=== PATIENT | female | born 1945 | race Caucasian/White ===

== ENCOUNTER 2016-06-03 10:05 | Day surgery (SDC) | payer MEDICARE ==
[~2016-06-03 10:05] MED LIST: Buffered Lidocaine 1% SYR 3ML* 3 ML/SYR SYRINGE INTRADERM ONE; NS 0.9% 1000 ML* 1,000 ML IV SCH
[2016-06-03] MEDS ORDERED: ceFAZolin 2 GM PREMIX (*) 2 GM/50 ML BAG IVPB ONE (10:13)
[2016-06-03] MEDS ORDERED: Midazolam* 1 MG/ML 5 ML VIAL (5 MG) ONE (12:38)
[2016-06-03] MEDS ORDERED: Lidocaine 1% MPF wEPI 200,000* 30 ML SDV ONE (12:54)
[2016-06-03] MEDS ORDERED: Methylene Blue 1%* 10 ML VIAL ONE (12:54)
[2016-06-03] MEDS ORDERED: Bupivacaine 0.25% EPI 200,000* 30 ML SDV ONE (12:55)
[2016-06-03] MEDS ORDERED: Lidocain 1% EPI 1:100,000 * 30 ML MDV ONE (13:05)
[2016-06-03] MEDS ORDERED: KETAMINE HCL* 50 MG/ML 10 ML VIAL ONE (13:21)
[2016-06-03] MEDS ORDERED: fentaNYL* 50 MCG/ML 2 ML VIAL (100 MCG VIAL) ONE (13:21)
[2016-06-03] MEDS ORDERED: DiMENhydriNATE IV* 50 MG/ML VIAL IV PUSH PRN (13:53)
[2016-06-03] MEDS ORDERED: Ondansetron INJ* 2 MG/ML VIAL IV PRN (13:53)
[2016-06-03] MEDS ORDERED: HYDROcodone/ACETAMIN 5-325 MG* 1 TAB PO PRN (13:53)
[2016-06-03] MEDS ORDERED: Acetaminophen TAB* 325 MG PO PRN (13:53)
[2016-06-03] MEDS ORDERED: PROCHLORPERAZINE INJ 5 MG/ML 2 ML VIAL IV PRN (13:53)
[2016-06-03] MEDS ORDERED: Lidocaine 2% PF * 5 ML VIAL ONE (14:17)
[2016-06-03] MEDS ORDERED: Famotidine IV* 10 MG/ML 2 ML (20 mg) ONE (14:17)
[2016-06-03] MEDS ORDERED: Propofol* 10 MG/ML 20 ML BTL IV PUSH ONE (14:17)
[2016-06-03 15:39] VITALS: BP 130/53
== END 2016-06-03 16:04 | disposition home or self-care (01) ==
LOC: OR 10:05
PROVIDERS: ATTEND Plastic Surgery
DX: C44.212 Basal cell carcinoma of skin of right ear and external auricular canal (principal)
CPT/HCPCS: 88305; 88331; 88332; J0690; J2001; J2250; J2704; J3010

== ENCOUNTER 2017-08-21 10:40 | Emergency (ER) | payer MEDICARE ==
--- NOTE | 2017-08-21 11:19 | UC ---
Lower Extremity/Ankle HPI - HPI Summary HPI Summary: 71 y/o female presents to the urgent care c/o Rt ankle pain s/p twisting her ankle and falling while playing w/ her dog this morning around 0915 AM. Pt was able to bear weight b/ w/ limping after injury. Pain is 3/10 at rest and 6/10 w / movement. She has swelling w/ bruising in the lateral malleolus. She applied ice and took 2 tabs of Advil to alleviate symptoms. Pt denies numbness or tingling sensation over her RT foot or ankle, SOB, calf pain, chest pain, abdominal pain, N/V/D - History of Current Complaint Stated Complaint: ANKLE INJURY Time Seen by Provider: 08/21/17 11:15 Hx Obtained From: Patient ?: No - Menopausal Onset/Duration: Sudden Onset, Lasting Hours - 2hrs Severity Initially: Moderate Severity Currently: Moderate Pain Intensity: 6 - w/ movement Pain Scale Used: 0-10 Numeric Aggravating Factor(s): Standing, Ambulation Alleviating Factor(s): Rest, Ice, OTC Meds Able to Bear Weight: Yes - Risk Factors Gout Risk Factors: Negative DVT Risk Factors: Negative Septic Arthritis Risk Factor: Negative - Allergies/Home Medications Allergies/Adverse Reactions: Allergies Allergy/AdvReac Type Severity Reaction Status Date / Time codeine Allergy Intermediate Nausea Verified 08/21/17 11:31 PMH/Surg Hx/FS Hx/Imm Hx Previously Healthy: Yes Other Endocrine History: Osteopenia Other GI/ History: IBS Other Cancer History: Basal cell carcinoma - Surgical History Surgical History: Yes Surgery Procedure, Year, and Place: TONSILLECTOMY 1961 [facility]. COSMETIC FACIAL SURGERY/LASER 1999 IN OFFICE- DR KHAN. UPPER WISDOM TEETH REMOVED- 2012 IN OFFICE- DR KHAN - Family History Known Family History: Positive: Cardiac Disease - CHF - Social History Occupation: Retired Lives: With Family Alcohol Use: Daily Alcohol Amount: 1 GLASS OF WINE WITH MEALS Substance Use Type: None Smoking Status (MU): Never Smoked Tobacco Have You Smoked in the Last Year: No Review of Systems Constitutional: Negative Skin: Negative Eyes: Negative ENT: Negative Respiratory: Negative Cardiovascular: Negative Gastrointestinal: Negative Genitourinary: Negative Motor: Negative Neurovascular: Negative Musculoskeletal: Decreased ROM - RT ankle, Other: - RT ankle pain s/p falling Neurological: Negative Psychological: Negative Is Patient Immunocompromised?: No All Other Systems Reviewed And Are Negative: Yes Physical Exam - Summary Physical Exam Summary: Vital Signs Reviewed: Yes General: well developed, well nourished female, sitting in the examining table w /o any apparent distress Eyes: Positive: Conjunctiva Clear - PERRLA, EOMI, ENT: Positive: Normal ENT inspection, Hearing grossly normal, Pharynx normal, TMs normal Neck: Positive: Supple, Nontender, No Lymphadenopathy Respiratory: Positive: Chest non-tender, Lungs clear, Normal breath sounds, No respiratory distress Cardiovascular: Positive: RRR, No Murmur, Pulses Normal, Brisk Capillary Refill Abdomen Description: Positive: Nontender, No Organomegaly, Soft. Negative: CVA Tenderness (R), CVA Tenderness (L) Bowel Sounds: Positive: Present Musculoskeletal: - Ankle: Pt is able to bear weight and ambulate w/ limping. The R ankle is without obvious asymmetry or deformity when compared to the L ankle. Decreased ROM due to pain. Moderate swelling at the lateral malleolus, with tenderness to palpation. some ecchymosis and bruising observed. No tenderness to palpation over the medial malleolus or swelling observed. Talar tilt test is negative for ligament laxity to valgus or varus stress. Negative anterior drawer. Peroneal nerve is intact with strong eversion and plantar flexion. Positive sensation over the Rt foot and Rt ankle, positive pulses, capillary refill intact Neurological Exam: Normal Psychological Exam: Normal Skin: warm and dry Triage Information Reviewed: Yes Lower Extremity Course/Dx - Course Course Of Treatment: 71 y/o female presents to the urgent care c/o Rt ankle pain s/p twisting her ankle and falling while playing w/ her dog this morning around 0915 AM. Pt was able to bear weight b/ w/ limping after injury. Pain is 3 /10 at rest and 6/10 w/ movement. She has swelling w/ bruising in the lateral malleolus. She applied ice and took 2 tabs of Advil to alleviate symptoms. Pt denies numbness or tingling sensation over her RT foot or ankle, SOB, calf pain , chest pain, abdominal pain, N/V/D. Hx obtained. Rt ankle X-ray ordered, Impression: Soft tissue swelling, no acute fracture. Pt most likely with a RT ankle Sprain. Pt immobilized with gel ankle splint and French bandage, Rx naproxen PO to decrease swelling and pain. Pt advised RICE and f/u with PCP on orthopedic in 1 week if not improvement of symptoms for further treatment. Pt 's BP is elevated today advised to decrease salt in diet, monitor BP and f/u with PCP for further management. Pt understood and agreed w/ plan of care. - Differential Dx/Diagnosis Differential Diagnosis/HQI/PQRI: Arthritis, Contusion, Fracture (Closed), Sprain , Strain, Tendonitis Provider Diagnoses: 1- Rt ankle pain s/p injury. 2-Elevated BP w/o Hx of HTN Discharge - Sign-Out/Discharge Documenting (check all that apply): Discharge/Admit/Transfer - D/C home - Discharge Plan Condition: Stable Disposition: HOME Prescriptions: Naproxen TAB* [Naprosyn 250 mg TAB*] 250 mg PO Q8H PRN #30 tab PRN Reason: Pain Patient Education Materials: Ankle Sprain (ED), Low-Sodium Diet (ED) Referrals: Lili Francis MD [Medical Doctor] - 1 Week Marcy Camacho MD [Primary Care Provider] - 1 Week Additional Instructions: 1-Please take medications as directed to alleviate pain and swelling. 2-Please apply ice, keep your ankle immobilized with the splint. Avoid standing for long periods of time or strenuous exercise. 3- Please f/u with Orthopedic Dr Francis or your PCP in 1 week is not improvement of symptoms for further evaluation and treatment. 4-Your BP is elevated today. please decrease salt in your diet, monitor BP and if it continues to be elevated please f/u with your PCP for further management - Billing Disposition and Condition Condition: STABLE Disposition: HOME
[2017-08-21 11:22] VITALS: BP 166/71
--- NOTE | 2017-08-21 12:00 | RAD ---
Indication: Lateral RIGHT ankle pain following twisting injury. Comparison: No relevant prior exams available on the [facility] [place]. Technique: AP, mortise, and lateral views RIGHT ankle. Report: Normal articular alignment. No acute fracture evident. Small probable chronic ossific fragments dorsal to the head of the talus and proximal pole of the navicula without compelling overlying soft tissue swelling most likely sequela of previous injury. Small os trigonum accessory ossicle. IMPRESSION: Negative for fracture or malalignment.
== END 2017-08-21 12:20 | disposition home or self-care (01) ==
LOC: UCEAST 10:40
DX: M25.571 Pain in right ankle and joints of right foot (principal); R03.0 Elevated blood-pressure reading, without diagnosis of hypertension; M85.80 Other specified disorders of bone density and structure, unspecified site; K58.9 Irritable bowel syndrome, unspecified; Z85.828 Personal history of other malignant neoplasm of skin; Z88.5 Allergy status to narcotic agent
CPT/HCPCS: 99213; G0463